=== PATIENT | male | born 1990 | race Caucasian/White ===

== ENCOUNTER 2019-05-20 22:02 | Emergency (ER) | payer OTHER ==
[~2019-05-20] VITALS: Ht 182.9 cm; Wt 75.7 kg
[2019-05-21] MEDS ORDERED: KETO10TA2 PO (00:09)
== END 2019-05-21 00:53 | disposition home or self-care (01) ==
LOC: ER 22:02 → EDBD 22:02 → ER 22:49
DX: R07.89 Other chest pain (principal); M94.0 Chondrocostal junction syndrome [Tietze]